=== PATIENT | male | born 1975 | race Caucasian/White ===

== ENCOUNTER → 2016-06-06 | Outpatient (CLI) | payer OTHER ==
[~2016-06-06] MED LIST: DOXYCYCLINE HY100 M1 PO; FLOMAX0.4 M1 PO; PERCOCET 5-3251 TAB PO; VICODIN 5/500 T1 TAB PO; ZOLOFT100 MG
--- NOTE | ~2016-06-06 | CR63 ---
[facility] A Service of [facility] & [facility] RADIOLOGY TEXT RESULTS PATIENT: ESHA HAYES LOCATION: [facility] : 77 UNIT #: [id number] AGE: [address]: Andi Esqueda MD SEX: M ORDER DR: [id number] [facility] [address] [place], [place] [address] [id number] O MR#: [id number] Acc #: [id number] NAME: ESHA HAYES : 1975 SEX: M STUDY DATE/TIME: 06/06/2016 15:59 UNIT: [facility] ROOM: STUDY DESCRIPTION: CR Chest 2 View Attending Physician: Andi Esqueda M.D. Referring Physician: Andi Esqueda M.D. Ordering Physician: Andi Esqueda M.D. Primary Care Physician: Arnel Israel D.O. 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 The cardiovascular configuration of the chest is normal and the lungs are clear. CONCLUSION Normal chest Dictated by... Mt Lua M.D. THIS IS AN ELECTRONICALLY VERIFIED REPORT Mt Lua M.D. at 06/11/2016 7:58 AM JOSE/neftaly TD: 06/07/2016 03:40 JOB #: [id number] MEDICAL IMAGING REPORT COPY
== END | disposition home or self-care (01) ==
LOC: CRAD 15:50
DX: R76.12 Nonspecific reaction to cell mediated immunity measurement of gamma interferon antigen response without active tuberculosis (principal)
CPT/HCPCS: 71020